=== PATIENT | male | born 1990 | race African-American/Black ===

== ENCOUNTER 2022-05-08 13:29 | Emergency (ER) | payer OTHER, SELFPAY ==
--- NOTE | 2022-05-08 14:42 | RAD REPORT ---
EXAM DESCRIPTION: RAD - Shoulder Left 2 View - 05/08/2022 2:32 pm CLINICAL HISTORY: PAINfollowing fall COMPARISON: No comparisons TECHNIQUE: Internal and external rotation views of the left shoulder were obtained. FINDINGS: No fracture or dislocation of the humeral head. Transverse fracture present to the lateral aspect the clavicle 20 mm from the AC joint. Clavicle is displaced 25 millimeter superiorly. Head of the clavicle remains normally positioned at the AC joint. Acromial humeral joint space is maintained . IMPRESSION: Fracture of the clavicle as detailed above and on separate left clavicle report. No fracture or dislocation the proximal humerus.
--- NOTE | 2022-05-08 14:43 | RAD REPORT ---
EXAM DESCRIPTION: RAD - Clavicle Left - 05/08/2022 2:32 pm CLINICAL HISTORY: PAINafter fall COMPARISON: No comparisons FINDINGS: Fracture traverses the lateral aspect of the left clavicle approximately 20 mm from the AC joint. There is 25 mm superior displacement of the shaft of the clavicle relative to the head. The h ead of the clavicle is normally positioned at the AC joint. Sternoclavicular joint is normal. IMPRESSION: Lateral left clavicle fracture as detailed.
[2022-05-08] MEDS ORDERED: KETOROLAC 30 MG/ML INJ ONE (14:47)
--- NOTE | 2022-05-08 16:56 | ER ---
Nurse's Notes [facility] Name: Lalo Boo Age: 31 yrs Sex: Male : 1990 Arrival Date: 05/08/2022 Time: 13:30 Bed 12 Private MD: Reinaldo Farias V Diagnosis: Displaced fracture of shaft of left clavicle Presentation: 05/08 13:40 Chief complaint: Patient states: I tripped and fell last night and landed on my left bm7 shoulder. It hurt so bad that I could hardly fall asleep. I don't know if its broken or what. Coronavirus screen: At this time, the client does not indicate any symptoms associated with coronavirus-19. Ebola Screen: No symptoms or risks identified at this time. Initial Sepsis Screen: Does the patient meet any 2 criteria? No. Patient's initial sepsis screen is negative. Does the patient have a suspected source of infection? No. Patient's initial sepsis screen is negative. Risk Assessment: Do you want to hurt yourself or someone else? Patient reports no desire to harm self or others. Onset of symptoms was May 07, 2022. 13:40 Method Of Arrival: Ambulatory 7 13:40 Acuity: BETY 3 bm7 Triage Assessment: 13:42 General: Appears in no apparent distress. uncomfortable, Behavior is calm, cooperative, bm7 appropriate for age. Pain: Complains of pain in anterior aspect of left shoulder and posterior aspect of left shoulder. EENT: No deficits noted. No signs and/or symptoms were reported regarding the EENT system. Neuro: No deficits noted. Cardiovascular: No deficits noted. Respiratory: No deficits noted. GI: No deficits noted. No signs and/or symptoms were reported involving the gastrointestinal system. : No deficits noted. No signs and/or symptoms were reported regarding the genitourinary system. Derm: Skin is intact, is healthy with good turgor, Wound noted left arm. Musculoskeletal: Reports pain in anterior aspect of left shoulder and posterior aspect of left shoulder. Injury Description: fall. Historical: - Allergies: 13:42 No Known Allergies; bm7 - Home Meds: 13:42 None [Active]; bm7 - PMHx: 13:42 None; bm7 - PSHx: 13:42 None; bm7 - Immunization history:: Adult Immunizations up to date, Client reports receiving the 2nd dose of the Covid vaccine, Client reports receiving the 1st dose of the Covid vaccine. - Social history:: Smoking status: Patient reports the use of cigarette tobacco products, smokes one-half pack cigarettes per day. Screenin:39 Abuse screen: Denies threats or abuse. Denies injuries from another. Nutritional eh3 screening: No deficits noted. Tuberculosis screening: No symptoms or risk factors identified. Fall Risk None identified. Assessment: 13:39 General: Appears in no apparent distress. uncomfortable, Behavior is calm, cooperative, eh3 appropriate for age. Pain: Complains of pain in posterior aspect of left shoulder and anterior aspect of left shoulder Pain does not radiate. Pain currently is 3 out of 10 on a pain scale. Quality of pain is described as aching, sharp, throbbing, Pain began 1 day ago. Is intermittent, Alleviated by rest, Aggravated by exercise, increased activity, repositioning, weight bearing, Noted to be resistant to movement. Neuro: Level of Consciousness is awake, alert, obeys commands, Oriented to person, place, time, situation, Mica Plate Layer are equal bilaterally Moves all extremities. Cardiovascular: Capillary refill < 3 seconds Patient's skin is warm and dry. Respiratory: Airway is patent Respiratory effort is even, unlabored. Musculoskeletal: Circulation, motion, and sensation intact. Range of motion: intact in all extremities. Injury Description: swelling of left shoulder with raised knot-like area on superior aspect. 14:43 Reassessment: No changes from previously documented assessment. Patient and/or family bm7 updated on plan of care and expected duration. Pain level reassessed. Patient is alert, oriented x 3, equal unlabored respirations, skin warm/dry/pink. 15:47 Reassessment: Patient and/or family updated on plan of care and expected duration. Pain ld1 level reassessed. Patient is alert, oriented x 3, equal unlabored respirations, skin warm/dry/pink. Pt states Toradol did not relieve pain, but does not want any additional medication at this time. Vital Signs: 13:39 BP 101 / 73; Pulse 85; Resp 16; Temp 98.6(TE); Pulse Ox 100% on R/A; Weight 72.57 kg bm7 (R); Height 6 ft. 1 in. (185.42 cm); Pain 10/10; 14:40 BP 111 / 76; Pulse 82; Resp 16; Pulse Ox 100% on R/A; eh3 15:40 BP 122 / 79; Pulse 81; Resp 18; Pulse Ox 100% on R/A; ld1 13:39 Body Mass Index 21.11 (72.57 kg, 185.42 cm) bm7 ED Course: 13:30 Patient arrived in ED. as 13:30 Reinaldo Farias MD is Private Physician. as 13:38 Summer Palencia MD is Attending Physician. sd2 13:39 Arm band placed on right wrist. bm7 13:39 Patient has correct armband on for positive identification. Bed in low position. Call eh3 light in reach. Side rails up X2. Client placed on continuous cardiac and pulse oximetry monitoring. NIBP monitoring applied. Door closed. Noise minimized. Lights dimmed. Warm blanket given. 13:39 No provider procedures requiring assistance completed. eh3 13:42 Triage completed. bm7 14:40 Carrie Vasquez, LAVONNE is Primary Nurse. eh3 14:43 No apparent distress. Resting quietly. Awaiting for x-ray. bm7 15:14 called and spoke with Naheed Friend Rn from the [facility] [place]/ She will eb call us back with ortho yardage control clerk for [facility] for patient consultation. 15:[address] Hoyt the orthopedic yardage control clerk for [facility] for patient consultation. eb 16:55 Josiah Little MD is Referral Physician. sd2 16:55 Cole Marques MD is Referral Physician. sd2 17:31 Patient did not have IV access during this emergency room visit. eh3 Administered Medications: 14:50 Drug: TORadol (ketorolac) 30 mg Route: IM; Site: right deltoid; bm7 15:46 Follow up: Response: No change in condition ld1 Medication: 13:39 VIS not applicable for this client. eh3 Outcome: 16:56 Discharge ordered by . sd2 17:30 Discharged to home ambulatory, with family. eh3 17:30 Condition: stable 17:30 Discharge instructions given to patient, family, Instructed on discharge instructions, follow up and referral plans. medication usage, Demonstrated understanding of instructions, follow-up care, medications, Prescriptions given X 2. 17:31 Patient left the ED. eh3 Signatures: Julia Samuel Elizabeth eb McCarthy, Brittany, RN RN bm7 Mary Jo Somers RN RN ld1 Carrie Vasquez RN RN eh3 Summer Palencia MD MD sd2
--- NOTE | 2022-05-08 16:56 | EDPHYS ---
Physician Documentation [facility] Name: Lalo Boo Age: 31 yrs Sex: Male : 1990 Arrival Date: 05/08/2022 Time: 13:30 Bed 12 Private MD: Reinaldo Farias V ED Physician Summer Palencia HPI: 05/08 13:58 This 31 yrs old Black Male presents to ER via Ambulatory with complaints of Shoulder sd2 Injury, Fall Injury. 13:58 31-year-old male presents with chief complaint of left shoulder pain and injury status sd2 post a fall last night. Abdomen fell landing on his left shoulder and has noticed a bump to that area since then. He states he is able to move his shoulder and lift his arm over his head but it is painful. He denies any significant numbness or tingling to the arm or decreased strength.. Historical: - Allergies: 13:42 No Known Allergies; bm7 - Home Meds: 13:42 None [Active]; bm7 - PMHx: 13:42 None; bm7 - PSHx: 13:42 None; bm7 - Immunization history:: Adult Immunizations up to date, Client reports receiving the 2nd dose of the Covid vaccine, Client reports receiving the 1st dose of the Covid vaccine. - Social history:: Smoking status: Patient reports the use of cigarette tobacco products, smokes one-half pack cigarettes per day. ROS: 13:58 Constitutional: Negative for fever, chills, and weight loss, Eyes: Negative for injury, sd2 pain, redness, and discharge, Cardiovascular: Negative for chest pain, palpitations, and edema, Back: Negative for injury and pain, MS/Extremity: Positive for injury and deformity, Skin: Negative for injury, rash, and discoloration, Neuro: Negative for headache, numbness and tingling. Exam: 13:58 Constitutional: This is a well developed, well nourished patient who is awake, alert, sd2 and in no acute distress. Head/Face: Normocephalic, atraumatic. Eyes: EOMI, normal conjunctiva bilaterally Chest/axilla: Normal chest wall appearance and motion. Nontender with no deformity. Skin: Warm, dry with normal turgor. Abrasion noted to posterior left shoulder MS/ Extremity: Pulses equal, no cyanosis. Neurovascular intact. Full, normal range of motion. Ambulatory without difficulty. Deformity noted to top of L shoulder area at the articulating end of the clavicle with associated TTP. 5/5 head chef strength and normal sensation. Psych: Awake, alert, with orientation to person, place and time. Behavior, mood, and affect are within normal limits. Vital Signs: 13:39 BP 101 / 73; Pulse 85; Resp 16; Temp 98.6(TE); Pulse Ox 100% on R/A; Weight 72.57 kg bm7 (R); Height 6 ft. 1 in. (185.42 cm); Pain 10/10; 14:40 BP 111 / 76; Pulse 82; Resp 16; Pulse Ox 100% on R/A; eh3 15:40 BP 122 / 79; Pulse 81; Resp 18; Pulse Ox 100% on R/A; ld1 13:39 Body Mass Index 21.11 (72.57 kg, 185.42 cm) bm7 MDM: 13:57 Patient medically screened. sd2 13:58 Differential diagnosis: fracture, contusion, rotator cuff injury, dislocation among sd2 others. Data reviewed: vital signs, nurses notes. 15:50 ED course: Spoke with Orthopedics for [facility] who recommends if just deformity and sd2 no obvious skin tenting to the point where it could pop out of the skin at any moment, pt can be followed up urgently in clinic on Tuesday. Pt with deformity and not thinned skin and significant skin tenting at this time. Closed and NVI. Will plan for discharge with outpatient follow up.. 05/08 13:58 Order name: XRAY Shoulder LEFT 2 view sd2 05/08 13:58 Order name: XRAY Clavicle LEFT sd2 05/08 14:42 Order name: RAD; Complete Time: 14:47 EDMS 05/08 14:43 Order name: RAD; Complete Time: 14:47 EDMS 05/08 15:50 Order name: Sling; Complete Time: 17:30 sd2 Administered Medications: 14:50 Drug: TORadol (ketorolac) 30 mg Route: IM; Site: right deltoid; bm7 15:46 Follow up: Response: No change in condition ld1 Disposition Summary: 05/08/22 16:56 Discharge Ordered Location: Home sd2 Problem: new sd2 Symptoms: have improved sd2 Condition: Stable sd2 Diagnosis - Displaced fracture of shaft of left clavicle sd2 Followup: sd2 - With: Josiah Little MD - When: 1 - 2 days - Reason: Recheck today's complaints, Continuance of care, Re-evaluation by your physician Followup: sd2 - With: Cole Marques MD - When: 1 - 2 days - Reason: Recheck today's complaints, Continuance of care, Re-evaluation by your physician Discharge Instructions: - Discharge Summary Sheet sd2 - Clavicle Fracture sd2 Forms: - Medication Reconciliation Form sd2 - Work release form eh3 - Thank You Letter sd2 - Antibiotic Education sd2 - Prescription Opioid Use sd2 Prescriptions: - Ibuprofen 800 mg Oral Tablet - take 1 tablet by ORAL route every 8 hours As needed take with food; 20 tablet; sd2 Refills: 0, Product Selection Permitted - Tramadol 50 mg Oral Tablet - take 1 tablet by ORAL route every 6 hours as needed; 12 tablet; Refills: 0, sd2 Product Selection Permitted Signatures: Dispatcher [employer] Christina Fisher RN RN 7 Summer Palencia MD MD sd2 Mary Jo Somers RN ld1
[2022-05-08 17:36] VITALS: TEMP 98.6; O2SAT 100
[2022-05-08 17:39] VITALS: BP 122/79
== END 2022-05-08 17:31 | disposition home or self-care (01) ==
LOC: ER 13:29
DX: S42.022A Displaced fracture of shaft of left clavicle, initial encounter for closed fracture (principal); F17.210 Nicotine dependence, cigarettes, uncomplicated
CPT/HCPCS: 96372; 99283